=== PATIENT | female | born 1960 | race Caucasian/White ===

== ENCOUNTER 2024-07-08 19:47 | Emergency (ER) | payer MEDICAID ==
[~2024-07-08] VITALS: Ht 154.9 cm; Wt 62.0 kg
[~2024-07-08 19:47] MED LIST: NOR5T PO
[2024-07-08 20:26] LABS: BASOPHILS % (AUTO) 0.3 % (0-1); EOSINOPHILS % (AUTO) 0.5 % (0-6); HEMATOCRIT 46.7 % (35.0-45.0); HEMOGLOBIN 16.3 g/dl (12.0-16.0); LYMPHOCYTES # (AUTO) 0.8 X10'3 (1.1-4.8); LYMPHOCYTES % (AUTO) 9.7 % (21-51); MEAN CORPUSCULAR HEMOGLOBIN 29.2 PG (27.0-31.0); MEAN CORPUSCULAR HGB CONC 34.9 g/dL (33.0-36.5); MEAN CORPUSCULAR VOLUME 83.8 FL (78-98); MEAN PLATELET VOLUME 8.6 FL (7.4-10.4); MONOCYTES # (AUTO) 0.5 X10'3 (0-0.9); MONOCYTES % (AUTO) 6.7 % (2-12); NEUTROPHILS # (AUTO) 6.6 X10'3 (1.8-7.7); NEUTROPHILS % (AUTO) 82.8 % (42-75); PLATELET COUNT 206 X10'3 (140-440); RED BLOOD COUNT 5.57 X10'6 (4.20-5.60); RED CELL DISTRIBUTION WIDTH 13.4 % (11.5-14.5)
[2024-07-08 20:32] LABS: BILIRUBIN,URINE NEGATIVE (Neg); CLARITY,URINE CLEAR (Clear); COLOR,URINE YELLOW (Yellow); GLUCOSE, URINE NEGATIVE (Neg); KETONES,URINE NEGATIVE (Neg); LEUKOCYTE ESTERASE ,URINE SMALL (Neg); NITRITES, URINE NEGATIVE (Neg); OCCULT BLOOD,URINE NEGATIVE (Neg); PROTEIN,URINE NEGATIVE (Neg); URINE HCG NEGATIVE (NEG); UROBILINOGEN,URINE 0.2 E.U/dL (0.2-1.0)
[2024-07-08 20:39] LABS: ALANINE AMINOTRANSFERASE 25 U/L (12-78); ALBUMIN 3.4 G/DL (3.4-5.0); ALBUMIN/GLOBULIN RATIO 0.7 (1.1-1.5); ALKALINE PHOSPHATASE 127 IU/L (46-116); ANION GAP 7 (8-16); ASPARTATE AMINO TRANSFERASE 18 U/L (10-37); BILIRUBIN,TOTAL 0.5 MG/DL (0.1-1.0); BLOOD UREA NITROGEN 8 MG/DL (7-18); BUN/CREATININE RATIO 10.5 (10.0-20.0); CALCIUM 8.4 MG/DL (8.5-10.1); CHLORIDE 102 MMOL/L (99-107); CREATININE 0.76 MG/DL (0.40-0.90); GLUCOSE 116 MG/DL (70-104); LIPASE 20 U/L (16-77); POTASSIUM 3.3 MMOL/L (3.5-5.1); SODIUM 138 MMOL/L (135-145); TOTAL CARBON DIOXIDE 28.7 MMOL/L (24-32); eCRCL 57 ML/MIN; eGFR 77 ML/MIN
[2024-07-08 20:39] LABS: UA COLLECTION TYPE CLN CATCH MIDSTREAM
[2024-07-08 20:40] LABS: BACTERIA,URINE FEW /HPF (Neg); RBC,URINE NONE SEEN /HPF (0-2); SQUAMOUS EPITHELIAL CELL,UR FEW /LPF (FEW)
[2024-07-08 23:33] VITALS: PULSE 78
[2024-07-08] MEDS ORDERED: AZIT250T29 PO (23:43)
[2024-07-08] MEDS ORDERED: AMOX-419 PO (23:43)
[2024-07-08] MEDS: ondansetron 4mg rapidly disintigrating tab PO ONE (23:55)
[2024-07-08] MEDS: amox tr/potassium clavulanate 875/125mg TAB PO ONE (23:55)
[2024-07-09 00:38] VITALS: BP 148/82; RESP 16; TEMP 98.2; O2SAT 96
== END 2024-07-09 00:40 | disposition home or self-care (01) ==
LOC: ER 19:48
DX: N39.0 Urinary tract infection, site not specified (principal); J06.9 Acute upper respiratory infection, unspecified; I10 Essential (primary) hypertension; Z90.89 Acquired absence of other organs
CPT/HCPCS: 36415; 80053; 81001; 81025; 83690; 85025; 87088; 99283